=== PATIENT | female | born 1995 | race Hispanic/Latino ===

== ENCOUNTER 2017-02-18 09:57 | Inpatient (IN) ==
[2017-02-18] MEDS ORDERED: PEPCID IV PRN (10:39)
[2017-02-18] MEDS ORDERED: KEFZOL 1 GM/D5W 1 GM/50 ML IVPB IV PRN (10:39)
[2017-02-18] MEDS ORDERED: PEPCID PO PRN (10:39)
[2017-02-18] MEDS ORDERED: PITOCIN 30 UNITS/LR 30 UNITS/500 ML IV.SOLN IV SCH (10:39)
[2017-02-18] MEDS ORDERED: AMPICILLIN 2 GM/NS 2 GM/100 ML IVPB IV ONE (10:39)
[2017-02-18] MEDS ORDERED: TYLENOL PO PRN (10:39)
[2017-02-18] MEDS ORDERED: LR 500 ML IV ONE (10:39)
[2017-02-18] MEDS ORDERED: ZOFRAN IV PRN (10:39)
[2017-02-18] MEDS ORDERED: STADOL IV PRN (10:39)
[2017-02-18] MEDS ORDERED: PEPCID PO ONE (10:39)
[2017-02-18] MEDS ORDERED: REGLAN PO ONE (10:39)
[2017-02-18] MEDS ORDERED: SODIUM CHLORIDE 0.9% INJ SCH (10:45)
[2017-02-18 10:52] LABS: URINE SOURCE VOIDED
[2017-02-18 10:55] LABS: BILIRUBIN URINE NEGATIVE (NEGATIVE); BLOOD URINE NEGATIVE (NEGATIVE); CLARITY SL. CLOUDY (CLEAR); COLOR YELLOW; GLUCOSE URINE NEGATIVE (NEGATIVE); LEUKOCYTES URINE 2+ (NEGATIVE); NITRITE URINE NEGATIVE (NEGATIVE); PROTEIN URINE 1+(30 mg/dL) mg/dL (NEGATIVE); SP GRAVITY URINE 1.005; UROBILINOGEN URINE 4+(12 mg/dL)
[2017-02-18 11:00] LABS: UR AMPHETAMINES QUAL NONE DETECTED (NONE DETECT); UR BARBITUATES QUAL NONE DETECTED (NONE DETECT); UR BENZODIAZEPIN QUAL NONE DETECTED (NONE DETECT); UR CANNABINOIDS QUAL NONE DETECTED (NONE DETECT); UR COCAINE QUAL NONE DETECTED (NONE DETECT); UR MDMA QUAL NONE DETECTED (NONE DETECT); UR METHADONE QUAL NONE DETECTED (NONE DETECT); UR METHAMPHETAMINE QUAL NONE DETECTED (NONE DETECT); UR OPIATES QUAL NONE DETECTED (NONE DETECT); UR OXYCODONE QUAL NONE DETECTED (NONE DETECT); UR PCP QUAL NONE DETECTED (NONE DETECT); UR TCA QUAL NONE DETECTED (NONE DETECT)
[2017-02-18] MEDS: LR 1,000 ML IV SCH ×3 (11:00→22:11)
[2017-02-18 11:25] LABS: BASO% 0.3 % (0.0-0.8); EOS# 0.05 X1000 (0.0-0.7); EOS% 0.4 % (0.0-10.0); HEMOGLOBIN 6.6 g/dL (12.0-16.0); IMM GRAN# 0.03 X1000 (0.0-0.04); IMM GRAN% 0.3 % (0.0-0.5); LYMPH# 2.61 X1000 (1.2-3.4); LYMPH% 22.4 % (20.5-51.1); MANUAL DIFF NEEDED? YES; MCH 20.2 PG (27-31); MCHC 28.7 g/dL (33-37); MCV 70.6 FL (81-99); MONO# 0.91 X1000 (0.11-0.59); MONO% 7.8 % (1.7-9.3); MPV 9.5 FL (7.4-10.4); NEUT% 68.8 % (42.2-75.2); PLT 293 X1000 (130-400); RBC 3.26 XMIL (4.2-5.4)
[2017-02-18 11:59] LABS: LYMPHS 26 % (21-51); MONO 2 % (1-9)
[2017-02-18 12:12] LABS: RAPID HIV PRESUMPTIVE NEGATIVE
[2017-02-18] MEDS ORDERED: BOOSTRIX VACCINE IM ONE (12:50)
[2017-02-18] MEDS ORDERED: PITOCIN 30 UNITS/LR 30 UNITS/500 ML IV.SOLN IV ONE (12:50)
[2017-02-18] MEDS ORDERED: M-M-R II VACCINE SUBQ ONE (12:50)
[2017-02-18] MEDS ORDERED: XYLOCAINE-MPF 1% INJ PRN (12:50)
[2017-02-18] MEDS ORDERED: NORCO-10 PO PRN (12:50)
[2017-02-18] MEDS ORDERED: HYDROXYZINE IM PRN (12:50)
[2017-02-18] MEDS ORDERED: PERI MEDS (DERMOPLAST/NUPERCAINAL/TUCKS) MISC PRN (12:50)
[2017-02-18] MEDS ORDERED: NORCO-5 PO PRN (12:50)
[2017-02-18] MEDS ORDERED: HYDROXYZINE PO PRN (12:50)
[2017-02-18] MEDS ORDERED: MINERAL OIL PO PRN (12:50)
[2017-02-18] MEDS ORDERED: AMBIEN PO PRN (12:50)
[2017-02-18] MEDS ORDERED: PITOCIN 20 UNITS/LR 20 UNITS/1,000 ML IV.SOLN IV SCH (12:50)
[2017-02-18] MEDS ORDERED: CYTOTEC PO PRN (12:50)
[2017-02-18] MEDS ORDERED: PITOCIN IM PRN (12:50)
[2017-02-18] MEDS ORDERED: BENADRYL PO PRN (12:50)
[2017-02-18] MEDS ORDERED: BENADRYL IV PRN (12:50)
--- NOTE | 2017-02-18 13:39 | HISTORY AND PHYSICAL ---
HISTORY OF PRESENT ILLNESS: The patient is a 21-year-old, G2, P1-0-0-1, with intrauterine of unknown gestation. complications include no care. The patient presented to labor and delivery complaining of contractions. Was subsequently found to be 6 cm, so admitted in labor. PAST MEDICAL HISTORY: None. PAST SURGICAL HISTORY: None. OBSTETRICAL HISTORY: Spontaneous vaginal delivery x1. GYNECOLOGICAL HISTORY: Noncontributory. SOCIAL HISTORY: No tobacco. PHYSICAL EXAMINATION: VITAL SIGNS: Patient afebrile. Vital signs stable. GENERAL: Patient uncomfortable with labor. LUNGS: Respirations normal. CARDIOVASCULAR: No peripheral vascular abnormalities noted. ABDOMEN: Soft, gravid, nontender to palpation. Cervix 6 cm. ASSESSMENT AND PLAN: A 21-year-old, 2, para 1-0-0-1, with intrauterine at unknown gestation, in labor. Will monitor for labor progression. cc: Mary Jane Gregg MD
--- NOTE | 2017-02-18 14:27 | OPERATIVE NOTE ---
PROCEDURE DATE: 02/18/2017 DELIVERY NOTE: Patient underwent sterile controlled spontaneous vaginal delivery of a viable female , weighing 6 pounds 7 ounces. Apgars currently unavailable. No nuchal. No dystocia. Cord doubly clamped, cut, and infant handed off. The placenta delivered spontaneously and intact. Uterus firm with Pitocin and massage. Uterus, cervix and vagina explored. A left vaginal laceration noted, hemostatic without repair. No complications. ESTIMATED BLOOD LOSS: 250 mL. cc: Mary Jane Gregg MD
[2017-02-18] MEDS ORDERED: AMPICILLIN 1 GM/NS 1 GM/50 ML IVPB IV SCH (14:40)
[2017-02-18 17:15] LABS: RPR NON-REACTIVE (NONREACTIVE); RUBELLA SCREEN IMMUNE (IMMUNE)
[2017-02-18] MEDS: MOTRIN PO PRN (21:40)
[2017-02-18] MEDS: PERICOLACE PO SCH (21:40)
[2017-02-19 05:45] LABS: HEMATOCRIT 21.5 % (37.0-47.0); MCH 19.6 PG (27-31); MCHC 27.4 g/dL (33-37); MCV 71.4 FL (81-99); MPV 9.9 FL (7.4-10.4); RBC 3.01 XMIL (4.2-5.4)
[2017-02-19 06:00] LABS: HEMOGLOBIN 5.9 g/dL (12.0-16.0)
[2017-02-19] MEDS: PERICOLACE PO SCH (21:29)
[2017-02-20] MEDS: MOTRIN PO PRN (04:53)
[2017-02-20 08:15] VITALS: BP 110/74
--- NOTE | 2017-02-20 23:00 | DISCHARGE SUMMARY ---
ADMISSION DATE: 02/18/2017 DISCHARGE DATE: 02/20/2017 ADMITTING DIAGNOSES: 1. Term , active labor. 2. Chronic and acute blood loss anemia. CONDITION: Stable. DIET: As tolerated. ACTIVITY: Routine . SPECIAL INSTRUCTIONS: She is to eat green leafy vegetables, red meat if possible. She is to take an iron tablet every day, probably for the next year. She is also to take stool softeners. She has Beatty for pain, and also Motrin 800. She is to follow up in [address] Solis. HOSPITAL COURSE: Ms. Guerrero presented on Monday, had a vaginal delivery. She has done well afterwards. No weakness noted. She is ambulating, voiding normally, despite a hemoglobin of 5.9. PHYSICAL EXAMINATION: Vital signs are stable. She is afebrile. She is alert and cooperative, in no distress. Pulse rate is in the 80s. Neck is supple. Lungs clear. Heart is in regular sinus rhythm. Abdomen is soft, slightly distended. Uterus is firm. +2 lower extremity edema. LABORATORY DATA: Hemoglobin 5.9. We will discharge with the above instructions. cc: MD Mary Jane Smith MD
[2017-02-21 09:25] LABS: HEPATITIS B SURFACE ANTIGEN SEE COMMENTS
[2017-02-21 09:27] LABS: HIV ANTIBODY SCREEN SEE COMMENTS
== END 2017-02-20 16:40 | disposition home or self-care (01) ==
LOC: P.OPLD 09:57 → P.LD 10:01
PROVIDERS: ADMIT Obstetrics & Gynecology; ATTEND Obstetrics & Gynecology